=== PATIENT | male | born 1950 | race Caucasian/White ===

== ENCOUNTER 2021-02-22 07:18 | Day surgery (SDC) | payer MEDICARE, OTHER ==
[~2021-02-22 07:18] MED LIST: Ak-Dilate OPHTHALMIC*** 1.065 ML, Cyclogyl 1% OPHTH SOL 5 ML 1.065 ML, GATIFLOXACIN 0.5... OP ONE; BETADINE 5% OPHTHALMIC 30 ML OP ONE; Lactated Ringers 1,000 ML IV SCH; NON-FORMULARY ITEM IJ ONE; TETRACAINE 0.5% STERI-UNIT SOL OP ONE; cefUROXime sodium 0.005 GM in Sodium Chloride Flush 30 ML*** 0.5 ML IJ SCH
[2021-02-22] MEDS ORDERED: Epinephrine Preservative Free 1 MG/ML IJ ONE (07:19)
[2021-02-22] MEDS ORDERED: LIDOCAINE HCL 1% 50 MG/5 ML VL PF IJ ONE (07:19)
[2021-02-22] MEDS ORDERED: Lactated Ringers 1,000 ML IV ONE (07:26)
[2021-02-22] MEDS ORDERED: ACETAZOLAMIDE 250 MG TABLET PO ONE (09:00)
[2021-02-22] MEDS ORDERED: Zofran 4 MG/2 ML VIAL IV PRN (09:00)
[2021-02-22] MEDS ORDERED: ROBINUL ONE (10:18)
[2021-02-22] MEDS ORDERED: DIPRIVAN 200 MG/20 ML IV ONE ×2 (10:18→10:41)
[2021-02-22] MEDS ORDERED: Xylocaine-Mpf 2% 5 Ml Vial ONE (10:41)
[2021-02-22 11:27] VITALS: O2SAT 98
[2021-02-22 11:32] VITALS: BP 149/70; PULSE 100
== END 2021-02-22 11:37 | disposition home or self-care (01) ==
LOC: SDC 07:18
PROVIDERS: ATTEND Ophthalmology
DX: H25.812 Combined forms of age-related cataract, left eye (principal); E11.9 Type 2 diabetes mellitus without complications; Z79.899 Other long term (current) drug therapy
CPT/HCPCS: 82947; 99100; C1780; J0171; J2001; J2704; A9270-GY

== ENCOUNTER 2021-03-22 07:44 | Day surgery (SDC) | payer MEDICARE ==
[~2021-03-22 07:44] MED LIST changes: +cefUROXime sodium 0.005 GM in Sodium Chloride Flush 30 ML*** 0.5 ML IJ ONE; -cefUROXime sodium 0.005 GM in Sodium Chloride Flush 30 ML*** 0.5 ML IJ SCH
[2021-03-22] MEDS ORDERED: Epinephrine Preservative Free 1 MG/ML IJ ONE (07:45)
[2021-03-22] MEDS ORDERED: LIDOCAINE HCL 1% 50 MG/5 ML VL PF IJ ONE (07:45)
[2021-03-22] MEDS ORDERED: Lactated Ringers 1,000 ML IV ONE (07:55)
[2021-03-22] MEDS: TETRACAINE 0.5% STERI-UNIT SOL OP ONE ×2 (08:17→08:50)
[2021-03-22] MEDS ORDERED: Zofran 4 MG/2 ML VIAL IV PRN (09:00)
[2021-03-22] MEDS ORDERED: ACETAZOLAMIDE 250 MG TABLET PO ONE (09:00)
[2021-03-22] MEDS ORDERED: DIPRIVAN 200 MG/20 ML IV ONE (10:15)
[2021-03-22] MEDS ORDERED: Versed 2 MG/2 ML Injection ONE (10:15)
[2021-03-22] MEDS ORDERED: SUBLIMAZE 100 MCG/2 ML ONE (10:15)
== END 2021-03-22 11:17 | disposition home or self-care (01) ==
LOC: SDC 07:44
PROVIDERS: ATTEND Ophthalmology
DX: H25.811 Combined forms of age-related cataract, right eye (principal); Z72.0 Tobacco use; Z79.84 Long term (current) use of oral hypoglycemic drugs; Z79.4 Long term (current) use of insulin; Z96.1 Presence of intraocular lens; E11.9 Type 2 diabetes mellitus without complications
CPT/HCPCS: 82947; 99100; C1780; J0171; J2001; J2250; J2704; J3010; A9270-GY